=== PATIENT | male | born 1950 | race Caucasian/White ===

== ENCOUNTER 2016-08-14 06:23 | Day surgery (SDC) | payer OTHER, MEDICARE ==
[2016-08-13 11:59] VITALS: BMI 32.1
[~2016-08-14 06:23] MED LIST: BUPIVACAINE HCL/PF 0.5% (5MG/ML) 10 ML VIAL IJ ONE
[2016-08-14 06:42] LABS: URINE APPEARANCE CLEAR; URINE BILIRUBIN NEGATIVE (NEGATIVE); URINE BLOOD NEGATIVE (NEGATIVE); URINE COLOR YELLOW; URINE GLUCOSE (UA) NEGATIVE (NEGATIVE); URINE KETONE NEGATIVE (NEGATIVE); URINE LEUK ESTERASE NEGATIVE (NEGATIVE); URINE NITRITE NEGATIVE (NEGATIVE); URINE PROTEIN NEGATIVE (NEGATIVE); URINE UROBILINOGEN NEGATIVE E.U./dl (0.2-1.0)
[2016-08-14] MEDS ORDERED: LIDOCAINE 1%/EPI 1:100000 (50 ML MULTI DOSE VIAL) ONE (07:46)
[2016-08-14] MEDS ORDERED: BUPIVACAINE HCL/PF 0.5% (5MG/ML) 10 ML VIAL ONE (07:46)
[2016-08-14] MEDS ORDERED: LIDOCAINE HCL/PF 2% SDV 5ML VIAL ONE (07:53)
[2016-08-14] MEDS ORDERED: PROPOFOL 20 ML ONE ×2 (07:53)
[2016-08-14] MEDS ORDERED: MIDAZOLAM HCL 2 MG/2 ML SINGLE DOSE VIAL ONE (07:54)
[2016-08-14] MEDS ORDERED: LIDOCAINE 1%/EPI 1:100000 (50 ML MULTI DOSE VIAL) INF ONE (08:32)
[2016-08-14] MEDS ORDERED: ceFAZolin SODIUM 1 GM VIAL ONE (08:33)
[2016-08-14] MEDS ORDERED: ceFAZolin SODIUM 1 GM VIAL IVPB ONE (08:34)
[2016-08-14] MEDS ORDERED: BUPIVACAINE HCL/PF 0.5% (5MG/ML) 10 ML VIAL IJ ONE (08:49)
[2016-08-14] MEDS ORDERED: ONDANSETRON 4 MG/2 ML VIAL IVPUSH PRN (08:53)
[2016-08-14] MEDS ORDERED: oxyCODONE HCL 5 MG TABLET PO PRN (08:53)
[2016-08-14] MEDS ORDERED: LACTATED RINGERS SOLUTION 1,000 ML IV SCH (09:00)
--- NOTE | 2016-08-14 09:12 | HP ---
[facility] - Chief Complaint History of Present Illness: internal derangement right knee History Source: Patient - Past Medical History Allergies/Adverse Reactions: Allergies Allergy/AdvReac Type Severity Reaction Status Date / Time No Known Drug Allergies Allergy Verified 08/13/16 12:08 - Current Medications Current Medications: Home Medications Medication Instructions Recorded Aspirin Coated [Ecotrin -] 162 mg PO DAILY 10/24/15 Metoprolol Succinate [Toprol XL -] 25 mg PO DAILY 10/24/15 Rosuvastatin Calcium [Crestor] 40 mg PO DAILY 10/24/15 Oxycodone HCl/Acetaminophen 1 each PO PRN PRN 08/13/16 [Endocet 5-325 Tablet] Satellite Physical Exam - Physical Examination Vital Signs: Vital Signs Period Temp Pulse Resp BP Sys/Grigsby Pulse Ox Last 24 Hr 98.2 F 66 18 122/74 96 Extremities: Other (+ joint line tenderness) [facility]ellite Impression/Plan - Impression/Plan Impression: internal derangement right knee Operative Procedure: arthroscopy right knee Date to be Performed: 08/14/16
--- NOTE | 2016-08-14 09:13 | OP ---
Operative Note - Note: Operative Date: 08/14/16 Pre-Operative Diagnosis: internal derangement right knee Operation: arthroscopy right knee with partial LM and chondroplasty MFC and synovial biopsy Post-Operative Diagnosis: Same as Pre-op Surgeon: Nicola Lazaro Anesthesia: General Operative Report Dictated: Yes
[2016-08-14 13:05] VITALS: BP 117/60; PULSE 58; TEMP 97.5
[2016-08-14 20:02] LABS: SYNOVIAL FLUID LYMPHOCYTES 2 %; SYNOVIAL FLUID MONOCYTES 8 %; SYNOVIAL FLUID NEUTROPHILS 90 %
--- NOTE | 2016-08-14 21:26 | OP ---
DATE OF OPERATION: 08/14/2016 PREOPERATIVE DIAGNOSIS: Internal derangement, right knee. POSTOPERATIVE DIAGNOSIS: Internal derangement, right knee. PROCEDURE: Arthroscopy, right knee, with chondroplasty of medial femoral condyle and partial lateral meniscectomy and synovial biopsy. SURGICAL ATTENDING: Nicola Lazaro MD ANESTHESIA: General with LMA. CLOSURE: 4-0 nylon. COMPLICATION: None. CONDITION: To recovery room in stable condition. DESCRIPTION OF OPERATIVE PROCEDURE: Patient was taken to the operating room on August 14, 2016. General anesthesia with LMA was administered by the anesthesiologist. The right lower extremity was prepped and draped in the usual sterile fashion. The superolateral, mediolateral, and infrapatellar portal sites were infiltrated with 1% Xylocaine with epinephrine. Superolateral portal was made with a 15 blade, blunt trocar. The knee was aspirated, which revealed about 50 mL of turbid fluid. This fluid was sent to the lab for a cell count, cultures, and crystals. At this time, IV antibiotics was administered (I usually do not administer IV antibiotics for arthroscopy but due to the nature of the fluid, I administered them in this case). Next, the medial, lateral and infrapatellar portals were then made with a 15 blade, blunt trocar. The scope was placed in the lateral infrapatellar portal up to suprapatellar pouch. The pouch was visualized to be clean. The medial and lateral gutters were visualized to be clean except for some increased synovial tissue. This synovial tissue was biopsied using a grasper. The undersurface of the patella and trochlea were found to be intact. With valgus stress on the knee, the medial compartment was entered. The medial meniscus was visualized and probed, found to be intact. The medial femoral condyle had a very small lesion, grade III-IV, on its most lateral portion at about 40 degrees of flexion. This was debrided to smooth and stable articular cartilage using the arthroscopic shaver. The medial tibial plateau was found to be intact at 90 degrees. The ACL was visualized, probed, found to be intact. In [id number] position, the lateral compartment was entered. The lateral meniscus was found to have a small radial tear of its mid substance. This was debrided back to more stable meniscal tissue using meniscal biter and arthroscopic shaver. The lateral femoral condyle was run and found to be intact as was the lateral tibial plateau. The knee was lavaged with copious amounts of arthroscopic fluid and then drained. The portals were closed with 4-0 nylon. Prior to closure, 20 mL of 0.5% Marcaine was infused into the knee for postoperative analgesia. A sterile pressure dressing was applied. Patient awakened from anesthesia and transferred to recovery room in stable condition. No complications. Estimated blood loss negligible. Clinton RASHEED/[id number]
--- NOTE | 2016-08-15 16:00 | PATH ---
Surgical Pathology Report Patient Name: GWEN CHRISTIANSON Med. Rec. #: [id number] /Age/Gender: 1950 (Age: 66) / M Account: [id number] Location: [facility] SURGICAL Taken: 08/14/2016 Received: 08/14/2016 Reported: 08/15/2016 Physicians: Nicola Lazaro M.D. Specimen(s) Received A: RIGHT KNEE SHAVINGS B: BX SYNOVIAL TISSUE RIGHT KNEE Clinical History Internal derangement of right knee Final Diagnosis A. SOFT TISSUE, RIGHT KNEE, ARTHROSCOPIC SHAVINGS: HYPERPLASTIC SYNOVIUM WITH MARKED ACTIVE AND CHRONIC LYMPHOPLASMACYTIC INFLAMMATION AND FIBRIN EXUDATE (SEE COMMENT). FIBROCARTILAGE SKELETAL DEGENERATION B. SYNOVIAL TISSUE, RIGHT KNEE, BIOPSY: SYNOVIUM WITH ACTIVE CHRONIC LYMPHOPLASMACYTIC INFLAMMATION; NECROINFLAMMATORY AND FIBRIN EXUDATE (SEE COMMENT). Comment: The histologic findings are highly suggestive of inflammatory arthritis. Clinical and serological correlations are suggested. Electronically Signed Micah Juarez M.D. Gross Description A. Received in formalin, labeled "right knee shavings" is a 4.8 x 4.5 x 0.6 cm. aggregate of smith-yellow soft tissue fragments. A medical billing representative portion is submitted in one cassette. B. Received in formalin labeled "synovial tissue right knee" is a 2.5 x 1.0 x 0.2 cm aggregate of smith fragments of soft tissue, consistent with synovial tissue. The specimen is submitted in toto in one cassette. /08/14/201608/14/2016
== END 2016-08-14 11:30 | disposition home or self-care (01) ==
LOC: JASU-SURG 06:23
PROVIDERS: ATTEND Orthopaedic Surgery
PROC: 0SBC4ZZ Excision of Right Knee Joint, Percutaneous Endoscopic Approach (ICD-10-PCS; principal; 2016-08-14 08:00)
DX: M23.91 Unspecified internal derangement of right knee (principal)
CPT/HCPCS: 81003; 87070; 87075; 87102; 87205; 87210; 88304-TC; 89051; 89060; 94760